=== PATIENT | female | born 1990 | race Two or more races ===

== ENCOUNTER 2019-08-12 11:41 | Emergency (ER) | payer SELFPAY ==
[2019-08-12 11:47] VITALS: BP 127/65; PULSE 86; TEMP 98.3; BMI 26.6
[2019-08-12] MEDS ORDERED: PHENAZOPYRIDINE HCL 100 MG TABLET (FP) ONE (12:24)
[2019-08-12] MEDS ORDERED: PHENAZOPYRIDINE HCL 100 MG TABLET (FP) PO ONE (12:24)
[2019-08-12 12:54] LABS: EPI CELLS 28.7 /HPF (0-5/HPF); HYALINE CASTS 15 /lpf (0-8); PH,URINE 5.5 (5.0-8.0); URINE APPEARANCE CLOUDY; URINE BACTERIA 131.6 /hpf (NEGATIVE); URINE BILIRUBIN NEGATIVE (NEGATIVE); URINE COLOR YELLOW; URINE GLUCOSE (UA) NEGATIVE (NEGATIVE); URINE KETONE NEGATIVE (NEGATIVE); URINE LEUK ESTERASE TRACE (NEGATIVE); URINE NITRITE NEGATIVE (NEGATIVE); URINE PROTEIN NEGATIVE (NEGATIVE); URINE RBC 6 /hpf (0-4); URINE UROBILINOGEN 0.2 mg/dL (0.2-1.0); URINE WBC 7 /hpf (0-5)
--- NOTE | 2019-08-12 13:07 | PDOC ---
History of Present Illness - General Chief Complaint: Pain Stated Complaint: LOWER BACK PAIN Time Seen by Provider: 08/12/19 12:09 - History of Present Illness Initial Comments: 08/12/19 13:04 29-year-old female without comorbidities presents for 2 weeks of dysuria frequency without systemic symptoms Past History - Past Medical History Allergies/Adverse Reactions: Allergies Allergy/AdvReac Type Severity Reaction Status Date / Time No Known Allergies Allergy Verified 08/12/19 11:47 Home Medications: Ambulatory Orders Nitrofurantoin Monohyd/M-Cryst [Macrobid -] 100 mg PO BID #14 capsule 08/12/19 COPD: No - Psycho Social/Smoking Cessation Hx Smoking History: Never smoked Review of Systems - Review of Systems Constitutional: No: Fever : Yes: Burning, Dysuria, Frequency *Physical Exam - Vital Signs Last Vital Signs Temp Pulse Resp BP Pulse Ox 98.3 F 86 18 127/65 98 08/12/19 11:42 08/12/19 11:42 08/12/19 11:42 08/12/19 11:42 08/12/19 11:42 - Physical Exam Comments: 08/12/19 13:05 GENERAL: The patient is awake, alert, and fully oriented, in no acute distress. HEAD: Normal with no signs of trauma. EYES: sclera anicteric, conjunctiva clear. EXTREMITIES: Normal range of motion, no edema. No clubbing or cyanosis. No cords, erythema, or tenderness. NEUROLOGICAL: Cranial nerves II through XII grossly intact. Normal speech, normal gait. PSYCH: Normal mood, normal affect. SKIN: Warm, Dry, normal turgor, no rashes or lesions noted. ED Treatment Course - ADDITIONAL ORDERS Additional order review: Laboratory Results 08/12/19 08/12/19 12:09 12:09 Urine Color Yellow Urine Appearance Cloudy Urine pH 5.5 Ur Specific [place] 1.032 Urine Protein Negative Urine Glucose (UA) Negative Urine Ketones Negative Urine Blood Trace Urine Nitrite Negative Urine Bilirubin Negative Urine Urobilinogen 0.2 Ur Leukocyte Esterase Trace Urine WBC (Auto) 7 Urine RBC (Auto) 6 Urine Casts (Auto) 15 U Epithel Cells (Auto) 28.7 Urine Bacteria (Auto) 131.6 Urine HCG, Qual Negative - Medications Given in the ED: ED Medications Discontinued Medications Generic Name Dose Route Start Last Admin Trade Name Freq PRN Reason Stop Dose Admin Phenazopyridine HCl 200 mg 08/12/19 12:24 08/12/19 12:26 Pyridium - PO 08/12/19 12:25 200 mg ONCE ONE Administration Medical Decision Making - Medical Decision Making 08/12/19 13:05 Macrobid for UTI follow-up with PCP Pyridium given in the emergency room Discharge - Discharge Information Problems reviewed: Yes Clinical Impression/Diagnosis: UTI (urinary tract infection) Condition: Stable Disposition: HOME - Admission No - Additional Discharge Information Prescriptions: Nitrofurantoin Monohyd/M-Cryst [Macrobid -] 100 mg PO BID #14 capsule - Follow up/Referral Referrals: Mahnaz Ashby MD [Staff Physician] - - Patient Discharge Instructions Additional Instructions: Please take the antibiotics and finish the entire course. Please take the antibiotics as directed. Return to the emergency room for worsening symptoms. Without fail please follow-up with internal medicine in 1 to 2 days for further evaluation and treatment options. - Post Discharge Activity
[2019-08-12] MEDS ORDERED: IBUPROFEN 600 MG TABLET (FP) PO ONE ×2 (13:09→13:10)
== END 2019-08-12 13:13 | disposition home or self-care (01) ==
LOC: JERFT 11:41
DX: N39.0 Urinary tract infection, site not specified (principal)
CPT/HCPCS: 81003; 84703; 87086; 99282-25

== ENCOUNTER 2022-03-02 09:00 | Emergency (ER) | payer SELFPAY ==
[2022-03-02 10:10] VITALS: BMI 27.1
[2022-03-02 11:33] VITALS: BP 117/73; PULSE 73; TEMP 98.4
[2022-03-02 11:48] LABS: EPI CELLS 32 /uL (0-25.1); HYALINE CASTS 1 /uL (0-3.1); PH,URINE 5.5 (5.0-8.0); URINE APPEARANCE CLEAR; URINE BACTERIA 600 /uL (0-1359); URINE BILIRUBIN NEGATIVE (NEGATIVE); URINE COLOR YELLOW; URINE GLUCOSE (UA) NEGATIVE (NEGATIVE); URINE KETONE NEGATIVE (NEGATIVE); URINE LEUK ESTERASE NEGATIVE (NEGATIVE); URINE NITRITE NEGATIVE (NEGATIVE); URINE PROTEIN NEGATIVE (NEGATIVE); URINE RBC 4 /uL (0-23.9); URINE UROBILINOGEN 0.2 mg/dL (0.2-1.0); URINE WBC 8 /uL (0-25.8)
[2022-03-02 11:51] LABS: BASO % 0.2 % (0-2.0); HEMATOCRIT 38.7 % (32.4-45.2); HEMOGLOBIN 12.8 GM/dL (10.7-15.3); LYMPH % 30.2 % (8-40); MCH 30.2 pg (25.7-33.7); MCHC 33.1 g/dl (32.0-36.0); MEAN CELL VOLUME 91.3 fl (80-96); MEAN PLT VOLUME 8.3 fl (7.5-11.1); MONO % 7.7 % (3.8-10.2); NEUT % 58.9 % (42.8-82.8); PLATELET COUNT 291 10^3/uL (134-434); RBC 4.24 M/mm3 (3.60-5.2); WHITE BLOOD COUNT 7.7 K/mm3 (4.0-10.0)
[2022-03-02 12:18] LABS: BLOOD UREA NITROGEN 12.7 mg/dL (7-18); CALCIUM 8.9 mg/dL (8.5-10.1)
[2022-03-02 12:19] LABS: ALBUMIN 3.7 g/dl (3.4-5.0)
[2022-03-02 12:22] LABS: CREATININE 0.6 mg/dL (0.55-1.3)
[2022-03-02 12:23] LABS: BILIRUBIN,TOTAL 0.4 mg/dL (0.2-1); TOT PROT 7.4 g/dl (6.4-8.2)
== END 2022-03-02 14:04 | disposition home or self-care (01) ==
LOC: JER 09:00
DX: O23.11 Infections of bladder in pregnancy, first trimester (principal); N30.00 Acute cystitis without hematuria; R10.9 Unspecified abdominal pain; Z3A.01 Less than 8 weeks gestation of pregnancy
CPT/HCPCS: 36415; 76817-TC; 80053; 81003; 84702; 85025; 86850; 86900; 86901; 87086; 87186; 87491; 87591; 99284-25

== ENCOUNTER 2022-03-14 13:46 | Emergency (ER) | payer OTHER ==
[2022-03-14 14:22] VITALS: BP 114/75; PULSE 68; TEMP 98.6; BMI 27.4
[2022-03-14] MEDS ORDERED: ACETAMINOPHEN 1000 MG/100 ML BAG IVPB ONE (14:41)
[2022-03-14] MEDS ORDERED: SODIUM CHLORIDE 1,000 ML IV STA (14:42)
[2022-03-14] MEDS ORDERED: ACETAMINOPHEN INJECTION 100 ML IVPB ONE (15:13)
[2022-03-14 15:35] LABS: BASO % 0.5 % (0-2.0); EOS % 3.7 % (0-4.5); HEMATOCRIT 39.7 % (32.4-45.2); HEMOGLOBIN 12.9 GM/dL (10.7-15.3); LYMPH % 27.4 % (8-40); MCH 29.4 pg (25.7-33.7); MCHC 32.6 g/dl (32.0-36.0); MEAN CELL VOLUME 90.4 fl (80-96); MEAN PLT VOLUME 7.5 fl (7.5-11.1); MONO % 7.3 % (3.8-10.2); NEUT % 61.1 % (42.8-82.8); PLATELET COUNT 291 10^3/uL (134-434); RBC 4.39 M/mm3 (3.60-5.2); RDW 13.2 % (11.6-15.6); WHITE BLOOD COUNT 9.6 K/mm3 (4.0-10.0)
[2022-03-14 15:43] LABS: EPI CELLS >36 /uL (0-25.1); HYALINE CASTS 5 /uL (0-3.1); URINE APPEARANCE CLOUDY; URINE BACTERIA 614 /uL (0-1359); URINE BILIRUBIN NEGATIVE (NEGATIVE); URINE COLOR YELLOW; URINE GLUCOSE (UA) NEGATIVE (NEGATIVE); URINE KETONE NEGATIVE (NEGATIVE); URINE LEUK ESTERASE 1+ (NEGATIVE); URINE NITRITE NEGATIVE (NEGATIVE); URINE PROTEIN NEGATIVE (NEGATIVE); URINE RBC 14 /uL (0-23.9); URINE UROBILINOGEN 0.2 mg/dL (0.2-1.0); URINE WBC 23 /uL (0-25.8)
[2022-03-14 15:45] LABS: HCG,QUALITATIVE URINE Positive
[2022-03-14 16:14] LABS: CALCIUM 9.1 mg/dL (8.5-10.1)
[2022-03-14 16:15] LABS: ALBUMIN 3.7 g/dl (3.4-5.0); BLOOD UREA NITROGEN 13.4 mg/dL (7-18)
[2022-03-14 16:18] LABS: CREATININE 0.7 mg/dL (0.55-1.3)
[2022-03-14 16:19] LABS: BILIRUBIN,TOTAL 0.1 mg/dL (0.2-1); TOT PROT 7.5 g/dl (6.4-8.2)
== END 2022-03-14 19:11 | disposition home or self-care (01) ==
LOC: JERFT 13:46 → JER 13:46 → JERFT 19:11
PROC: 3E0333Z Introduction of Anti-inflammatory into Peripheral Vein, Percutaneous Approach (ICD-10-PCS; principal; 2022-03-14)
PROC: 3E0337Z Introduction of Electrolytic and Water Balance Substance into Peripheral Vein, Percutaneous Approach (ICD-10-PCS; 2022-03-14)
DX: O23.41 Unspecified infection of urinary tract in pregnancy, first trimester (principal); Z3A.01 Less than 8 weeks gestation of pregnancy
CPT/HCPCS: 36415; 76817-TC; 80053; 81003; 83690; 84702; 84703; 85025; 99284-25

== ENCOUNTER 2022-04-06 09:31 | Emergency (ER) | payer OTHER ==
[2022-04-06 10:14] VITALS: TEMP 99.4; BMI 27.9
[2022-04-06] MEDS ORDERED: ACETAMINOPHEN 1000 MG/100 ML BAG IVPB ONE (10:18)
[2022-04-06] MEDS ORDERED: SODIUM CHLORIDE 0.9% 500 ML INFUS.BAG IV ONE (10:18)
[2022-04-06] MEDS ORDERED: ACETAMINOPHEN INJECTION 100 ML IVPB ONE (10:34)
[2022-04-06 10:50] LABS: BASO % 0.4 % (0-2.0); EOS % 2.8 % (0-4.5); HEMOGLOBIN 12.4 GM/dL (10.7-15.3); LYMPH % 22.3 % (8-40); MCH 29.9 pg (25.7-33.7); MCHC 33.4 g/dl (32.0-36.0); MEAN CELL VOLUME 89.4 fl (80-96); MEAN PLT VOLUME 7.6 fl (7.5-11.1); MONO % 7.3 % (3.8-10.2); NEUT % 67.2 % (42.8-82.8); PLATELET COUNT 284 10^3/uL (134-434); RBC 4.14 M/mm3 (3.60-5.2); RDW 12.8 % (11.6-15.6); WHITE BLOOD COUNT 8.1 K/mm3 (4.0-10.0)
[2022-04-06 11:11] LABS: CALCIUM 8.6 mg/dL (8.5-10.1)
[2022-04-06 11:12] LABS: ALBUMIN 3.2 g/dl (3.4-5.0); BLOOD UREA NITROGEN 10.4 mg/dL (7-18)
[2022-04-06 11:15] LABS: CREATININE 0.5 mg/dL (0.55-1.3)
[2022-04-06 11:16] LABS: BILIRUBIN,TOTAL 0.2 mg/dL (0.2-1); TOT PROT 6.9 g/dl (6.4-8.2)
[2022-04-06 11:23] LABS: URINE APPEARANCE Error; URINE BILIRUBIN NEGATIVE (NEGATIVE); URINE COLOR YELLOW; URINE GLUCOSE (UA) NEGATIVE (NEGATIVE); URINE KETONE NEGATIVE (NEGATIVE); URINE LEUK ESTERASE NEGATIVE (NEGATIVE); URINE NITRITE NEGATIVE (NEGATIVE); URINE PROTEIN NEGATIVE (NEGATIVE)
[2022-04-06 12:21] VITALS: BP 125/68; PULSE 65
== END 2022-04-06 12:32 | disposition home or self-care (01) ==
LOC: JER 09:31
PROC: 3E033NZ Introduction of Analgesics, Hypnotics, Sedatives into Peripheral Vein, Percutaneous Approach (ICD-10-PCS; principal; 2022-04-06)
DX: U07.1 COVID-19 (principal)
CPT/HCPCS: 0241U-QW; 36415; 76815; 80053; 81003; 84484; 84702; 85025; 87077; 87086; 93005; 93010; 99284-25

== ENCOUNTER 2022-07-07 12:16 | Emergency (ER) | payer OTHER ==
[2022-07-07 12:39] VITALS: BMI 31.9
[2022-07-07 13:29] VITALS: TEMP 97.8
[2022-07-07 15:01] VITALS: BP 132/75; PULSE 88; RESP 20
[2022-07-13 13:34] LABS: POC NITRAZINE NEG
== END 2022-07-07 15:00 | disposition home or self-care (01) ==
LOC: JER 12:16
DX: Z3A.26 26 weeks gestation of pregnancy (principal)
CPT/HCPCS: 83986-QW; 99281-25

== ENCOUNTER 2022-09-14 10:41 | Emergency (ER) | payer OTHER ==
[2022-09-14 10:52] VITALS: BP 104/65; PULSE 92; RESP 20; TEMP 98.1; BMI 31.6
== END 2022-09-14 12:57 | disposition home or self-care (01) ==
LOC: JER 10:41
DX: O26.893 Other specified pregnancy related conditions, third trimester (principal); R53.1 Weakness; Z3A.32 32 weeks gestation of pregnancy
CPT/HCPCS: 99283-25

== ENCOUNTER 2023-07-04 09:52 | Emergency (ER) | payer OTHER ==
[2023-07-04 10:16] VITALS: BP 125/81; PULSE 94; RESP 18; TEMP 99; BMI 23.3
[2023-07-04] MEDS ORDERED: IBUPROFEN 600 MG TABLET (FP) PO ONE ×2 (11:35)
== END 2023-07-04 11:43 | disposition home or self-care (01) ==
LOC: JERFT 09:52 → JER 09:52 → JERFT 11:43
DX: R05.9 Cough, unspecified (principal); R07.89 Other chest pain; J02.9 Acute pharyngitis, unspecified; R51.9 Headache, unspecified; R68.83 Chills (without fever); M79.10 Myalgia, unspecified site; B34.9 Viral infection, unspecified; Z20.822 Contact with and (suspected) exposure to COVID-19
CPT/HCPCS: 0241U-QW; 71046-TC-FY; 87651; 93005; 93010; 99285-25

== ENCOUNTER 2023-08-20 11:48 | Emergency (ER) | payer OTHER ==
[2023-08-20 11:58] VITALS: BMI 26.6
[2023-08-20] MEDS ORDERED: ACETAMINOPHEN 500 MG TABLET (FP) PO ONE (12:56)
[2023-08-20] MEDS ORDERED: ONDANSETRON *ODT* 4 MG TABLET SL ONE (12:57)
[2023-08-20] MEDS ORDERED: ONDANSETRON *ODT* 4 MG TABLET ONE (13:06)
[2023-08-20] MEDS ORDERED: ACETAMINOPHEN 325 MG TABLET (FP) ONE (13:06)
[2023-08-20 13:15] LABS: PH,URINE 5.5 (5.0-8.0); URINE APPEARANCE CLEAR; URINE BILIRUBIN NEGATIVE (NEGATIVE); URINE COLOR YELLOW; URINE GLUCOSE (UA) NEGATIVE (NEGATIVE); URINE KETONE NEGATIVE (NEGATIVE); URINE LEUK ESTERASE NEGATIVE (NEGATIVE); URINE NITRITE NEGATIVE (NEGATIVE); URINE PROTEIN NEGATIVE (NEGATIVE)
[2023-08-20 13:21] LABS: HCG,QUALITATIVE URINE Positive
[2023-08-20 13:41] VITALS: BP 124/58; PULSE 73; RESP 20; TEMP 98.7
== END 2023-08-20 13:42 | disposition home or self-care (01) ==
LOC: JER 11:48
DX: O26.891 Other specified pregnancy related conditions, first trimester (principal); R51.9 Headache, unspecified; O21.9 Vomiting of pregnancy, unspecified; Z3A.00 Weeks of gestation of pregnancy not specified
CPT/HCPCS: 81003; 84703; 99283-25; Q0162

== ENCOUNTER 2023-08-25 16:43 | Emergency (ER) | payer OTHER ==
[2023-08-25 16:50] VITALS: BP 129/83; PULSE 81; RESP 20; TEMP 98.5; BMI 28.3
[2023-08-25] MEDS ORDERED: ACETAMINOPHEN 325 MG TABLET (FP) PO ONE (17:01)
[2023-08-25] MEDS ORDERED: ACETAMINOPHEN 325 MG TABLET (FP) ONE (17:24)
== END 2023-08-25 18:07 | disposition home or self-care (01) ==
LOC: JER 16:43
DX: R51.9 Headache, unspecified (principal); I10 Essential (primary) hypertension
CPT/HCPCS: 99283-25

== ENCOUNTER 2023-12-11 21:30 | Emergency (ER) | payer OTHER ==
[2023-12-11 21:43] VITALS: BP 140/85; PULSE 110; RESP 18; TEMP 99.8; BMI 28.3
[2023-12-11] MEDS ORDERED: IBUPROFEN 400 MG TABLET (FP) PO ONE (23:19)
[2023-12-11] MEDS ORDERED: DEXAMETHASONE SOD PHOSPHATE 10 MG/1 ML VIAL ONE (23:19)
[2023-12-11] MEDS: DEXAMETHASONE SOD PHOSPHATE 10 MG/1 ML VIAL PO ONE (23:23)
[2023-12-11] MEDS: IBUPROFEN 400 MG TABLET (FP) PO ONE (23:23)
[2023-12-11] MEDS: MAG HYDROX/ALH/SMC/DPHA/LIDO 240 ML MOUTHWASH MM ONE (23:49)
[2023-12-11] MEDS ORDERED: AMOXICILLIN 250 MG CAPSULE ONE (23:50)
[2023-12-11] MEDS: AMOXICILLIN 500 MG CAPSULE (FP) PO ONE (23:51)
[2023-12-12] MEDS ORDERED: MAG HYDROX/ALH/SMC/DPHA/LIDO 240 ML MOUTHWASH MM ONE (22:55)
== END 2023-12-12 00:07 | disposition home or self-care (01) ==
LOC: JER 21:30 → JERFT 21:30
DX: R50.9 Fever, unspecified (principal); M79.10 Myalgia, unspecified site; R51.9 Headache, unspecified; R53.83 Other fatigue; R59.0 Localized enlarged lymph nodes; R00.0 Tachycardia, unspecified; J02.0 Streptococcal pharyngitis; Z20.822 Contact with and (suspected) exposure to COVID-19
CPT/HCPCS: 0241U-QW; 87651; 99283-25; J1100